=== PATIENT | male | born 1965 | race Caucasian/White ===

== ENCOUNTER 2017-09-07 12:45 | Inpatient (IN) | payer BC ==
[2017-09-07] MEDS: HYDROmorphONE 1 MG/ML SYG IV ×2 (13:49→17:10)
[2017-09-07] MEDS: ONDANSETRON 4 MG INJ IV (13:49)
[2017-09-07 13:59] LABS: ADD MAN DIFF? NO
[2017-09-07 14:02] LABS: BASOPHILS % 0.3 % (0.0-2.0); EOSINOPHILS # 0.1 10^3/ul (0.0-0.5); EOSINOPHILS % 0.8 % (0.0-7.0); HEMATOCRIT 44.9 % (42.0-52.0); HEMOGLOBIN 15.6 g/dl (14.0-18.0); LYMPHOCYTES # 2.3 10^3/ul (0.8-2.9); LYMPHOCYTES % 18.5 % (15.0-51.0); MEAN CORPUSCULAR HEMOGLOBIN 29.3 pg (29.0-33.0); MEAN CORPUSCULAR HGB CONC 34.7 g/dl (32.0-37.0); MEAN CORPUSCULAR VOLUME 84.2 fl (82.0-101.0); MEAN PLATELET VOLUME 10.4 fl (7.4-10.4); MONOCYTE # 0.6 10^3/ul (0.3-0.9); MONOCYTES % 5.2 % (0.0-11.0); NEUTROPHIL # 9.2 10^3/ul (1.6-7.5); NEUTROPHILS % 74.9 % (39.0-77.0); PLATELET COUNT 228 10^3/UL (140-415); RED BLOOD COUNT 5.33 10^6/ul (4.70-6.10); RED CELL DISTRIBUTION WIDTH 14.5 % (11.5-14.5)
[2017-09-07 14:02] LABS: WHITE BLOOD COUNT 12.3 10^3/ul (4.8-10.8)
[2017-09-07 14:25] LABS: ALANINE AMINOTRANSFERASE 46 IU/L (13-69); ALBUMIN 4.2 g/dl (3.3-4.9); ALBUMIN/GLOBULIN RATIO 0.91; ALKALINE PHOSPHATASE 197 IU/L (42-121); ANION GAP 16 (8-16); ASPARTATE AMINO TRANSFERASE 99 IU/L (15-46); BILIRUBIN,INDIRECT 0.9 mg/dl (0-1.1); BILIRUBIN,TOTAL 0.9 mg/dl (0.2-1.3); BLOOD UREA NITROGEN 17 mg/dl (7-20); CALCIUM 9.4 mg/dl (8.4-10.2); CARBON DIOXIDE 26 mmol/L (21-31); CHLORIDE 95 mmol/L (97-110); GLUCOSE 105 mg/dl (70-220); SODIUM 133 mmol/L (135-144); TOTAL PROTEIN 8.8 g/dl (6.1-8.1)
[2017-09-07 14:37] LABS: LIPASE 2065 U/L (23-300); TROPONIN-I < 0.012 ng/ml (0.00-0.12)
[2017-09-07 15:27] LABS: ADD UMIC YES; UR ASCORBIC ACID NEGATIVE (NEGATIVE); UR BILIRUBIN (Dip) 1+ mg/dL (NEGATIVE); UR BLOOD (Dip) NEGATIVE (NEGATIVE); UR CLARITY CLEAR (CLEAR); UR COLOR AMBER (YELLOW); UR GLUCOSE (Dip) NEGATIVE (NEGATIVE); UR KETONES (Dip) NEGATIVE (NEGATIVE); UR LEUKOCYTE ESTERASE (Dip) NEGATIVE Leu/ul (NEGATIVE); UR MUCUS MANY /HPF (NONE SEEN); UR NITRITE (Dip) NEGATIVE (NEGATIVE); UR RBC 0 /HPF (0-5); UR SPECIFIC GRAVITY (Dip) 1.031 (1.003-1.030); UR TOTAL PROTEIN (Dip) 1+ mg/dl (NEGATIVE); UR UROBILINOGEN (Dip) 2+ mg/dL (NEGATIVE); UR WBC 1 /HPF (0-5)
[2017-09-07] MEDS ORDERED: ONDANSETRON 4 MG INJ IV ×2 (15:30→16:00)
[2017-09-07] MEDS ORDERED: ACETAMINOPHEN 325 MG TAB PO (15:30)
[2017-09-07] MEDS ORDERED: DOCUSATE SODIUM 100 MG CAP PO (16:00)
[2017-09-07] MEDS ORDERED: ONDANSETRON 4 MG TAB PO (16:00)
[2017-09-07] MEDS ORDERED: MAGNESIUM HYDROXIDE 30ML CUP PO (16:00)
[2017-09-07] MEDS ORDERED: METOCLOPRAMIDE 10 MG INJ IV (16:00)
[2017-09-07] MEDS ORDERED: OXYCODONE/ACETAMINOPHEN (10/325) TAB PO (16:00)
[2017-09-07] MEDS ORDERED: HYDROCODONE/APAP (5/325) TAB PO (16:00)
[2017-09-07] MEDS ORDERED: NACL 0.9% 3 ML SYG IV (16:00)
[2017-09-07] MEDS ORDERED: BISACODYL (EC) 5 MG TAB PO (16:00)
[2017-09-07] MEDS: SOD CHLORIDE 0.9% 1,000 ML IV ×3 (16:38→23:44)
[2017-09-07] MEDS: morphine 2 MG INJ IV (17:04)
[2017-09-07] MEDS ORDERED: RANITIDINE 150 MG TAB PO (21:00)
[2017-09-07] MEDS: HYDROCODONE/APAP (10/325) TAB PO (21:04)
[2017-09-07] MEDS: MIRTAZAPINE 15 MG TAB PO (23:22)
[2017-09-07] MEDS: QUETIAPINE 100 MG TAB PO (23:22)
[2017-09-07] MEDS: ATORVASTATIN 40 MG TAB PO (23:23)
[2017-09-07] MEDS: IBUPROFEN 600 MG TAB PO (23:23)
[2017-09-08] MEDS: morphine 2 MG INJ IV ×2 (03:29→09:18)
[2017-09-08] MEDS: PANTOPRAZOLE (EC) 40 MG TAB PO (05:29)
[2017-09-08] MEDS: HYDROCODONE/APAP (10/325) TAB PO ×2 (05:29→12:15)
[2017-09-08] MEDS: SOD CHLORIDE 0.9% 1,000 ML IV (07:30)
[2017-09-08] MEDS: LISINOPRIL 5 MG TAB PO (09:07)
[2017-09-08] MEDS: ASPIRIN 81 MG TAB PO (09:08)
[2017-09-08] MEDS: ENOXAPARIN 40 MG/0.4 ML SYG SC (09:11)
== END 2017-09-08 17:00 | disposition home or self-care (01) | DRG 391 ==
LOC: E/R 12:45 → MS1 15:22
DX: R10.9 Unspecified abdominal pain (principal); I81 Portal vein thrombosis; C22.0 Liver cell carcinoma; K80.20 Calculus of gallbladder without cholecystitis without obstruction
CPT/HCPCS: 36415; 74176; 76705; 80053; 81001; 83690; 84484; 85025; 87081; 93005; 96374; 96375; 99285-25